=== PATIENT | male | born 1930 | race Caucasian/White ===

== ENCOUNTER → 2017-10-31 | Outpatient (CLI) | payer MEDICARE | END | disposition home or self-care (01) | LOC: CFH 12:42 | PROVIDERS: ATTEND Internal Medicine Cardiovascular Disease | DX: I08.1 Rheumatic disorders of both mitral and tricuspid valves (principal); I48.91 Unspecified atrial fibrillation; I10 Essential (primary) hypertension; E11.9 Type 2 diabetes mellitus without complications | CPT/HCPCS: 93306 ==

== ENCOUNTER 2017-11-25 06:44 | Observation (INO) | payer MEDICARE ==
[~2017-11-25] VITALS: Ht 175.3 cm; Wt 80.3 kg
[2017-11-25] MEDS ORDERED: SODIUM CHLORIDE 0.9% 1,000 ML IV SCH ×2 (07:19)
[2017-11-25 07:22] VITALS: BP 138/93
[2017-11-25] MEDS ORDERED: CEFAZOLIN PMX 1GM/50ML 50 ML IVPB ONE (07:30)
[2017-11-25] MEDS ORDERED: ATOR40TA78 PO (07:35)
[2017-11-25] MEDS ORDERED: APIX5TAB PO (07:35)
[2017-11-25] MEDS ORDERED: ASPI-621 PO (07:35)
[2017-11-25] MEDS ORDERED: FOLI0.8C PO (07:35)
[2017-11-25] MEDS ORDERED: MULT1TAB13 PO (07:35)
[2017-11-25] MEDS ORDERED: FENTANYL PF 250 MCG/5ML ONE (07:40)
[2017-11-25] MEDS ORDERED: POTA20TA14 PO (07:41)
[2017-11-25] MEDS ORDERED: FURO-92 PO (07:41)
[2017-11-25] MEDS ORDERED: METO25TA91 PO (07:41)
[2017-11-25] MEDS ORDERED: SILD50TA PO (07:41)
[2017-11-25] MEDS ORDERED: NITR0.4T28 SL (07:41)
[2017-11-25] MEDS ORDERED: PROPOFOL 10 MG/ML, 20ML ONE (07:42)
[2017-11-25] MEDS ORDERED: SUCCINYLCHOLINE 20 MG/ML, 10ML ONE (07:45)
[2017-11-25] MEDS ORDERED: ROCURONIUM 10MG/ML,5ML ONE (07:48)
[2017-11-25] MEDS ORDERED: CEFAZOLIN 1,000 MG ONE ×2 (07:48→11:12)
[2017-11-25] MEDS ORDERED: LIDOCAINE/PF 1%, 30ML ONE (07:48)
[2017-11-25] MEDS ORDERED: LORazepam 2 MG/ML, 1ML IVPush PRN (11:00)
[2017-11-25] MEDS ORDERED: ONDANSETRON ODT 8 MG PO PRN (11:00)
[2017-11-25] MEDS ORDERED: EPHEDRINE 50 MG/ML, 1ML IVPush PRN (11:00)
[2017-11-25] MEDS ORDERED: MIDAZOLAM 1 MG/ML, 2ML IV PRN (11:00)
[2017-11-25] MEDS ORDERED: hydrALAzine 20 MG/ML, 1ML IV PRN (11:00)
[2017-11-25] MEDS ORDERED: ALBUTEROL SULFATE 2.5 MG/3 ML NPPB PRN (11:00)
[2017-11-25] MEDS ORDERED: HALOPERIDOL 5 MG/ML IV PRN (11:00)
[2017-11-25] MEDS ORDERED: HOLD MEDICATION MC PRN (11:00)
[2017-11-25] MEDS ORDERED: FENTANYL PF 100 MCG/2ML IV PRN (11:00)
[2017-11-25] MEDS ORDERED: PROMETHAZINE 12.5 MG SUPP PR PRN (11:00)
[2017-11-25] MEDS ORDERED: LABETALOL 5MG/ML, 20ML IV PRN (11:00)
[2017-11-25] MEDS ORDERED: HYDROmorphone 1 MG/ML, 1ML IV PRN (11:00)
[2017-11-25] MEDS ORDERED: ONDANSETRON 2MG/ML, 2ML IV PRN (11:00)
[2017-11-25] MEDS ORDERED: ACETAMINOPHEN 325 MG TABLET PO PRN (11:00)
[2017-11-25] MEDS ORDERED: MORPHINE SULFATE 4 MG/ML, 1ML IVPush PRN (11:00)
[2017-11-25] MEDS ORDERED: SILDENAFIL CITRATE 50 MG PO PRN (11:00)
[2017-11-25] MEDS ORDERED: NITROGLYCERIN 0.4 MG BOTTLE (25 TABS) SL PRN (11:00)
[2017-11-25] MEDS ORDERED: MEPERIDINE/PF 25MG/0.5ML IVPush PRN (11:00)
[2017-11-25] MEDS ORDERED: OXYcodone 5 MG/5 ML ORAL.SOL UDC PO PRN (11:00)
[2017-11-25] MEDS ORDERED: PROMETHAZINE 25 MG/ML, 1ML IV PRN (11:00)
[2017-11-25] MEDS ORDERED: ONDANSETRON 2MG/ML, 2ML ONE (11:11)
[2017-11-25] MEDS ORDERED: DEXAMETHASONE 4 MG/ML, 1ML ONE (11:11)
[2017-11-25] MEDS ORDERED: EPHEDRINE 50 MG/ML, 1ML ONE (11:11)
[2017-11-25 12:24] VITALS: BP 113/80
[2017-11-25] MEDS: CEFAZOLIN PMX 1GM/50ML 50 ML IVPB SCH ×2 (14:50→23:32)
[2017-11-25 19:42] VITALS: BP 94/60
[2017-11-25] MEDS: METOPROLOL SUCCINATE 25 MG TAB.ER.24H PO SCH (21:00)
[2017-11-25] MEDS ORDERED: ATORVASTATIN 40 MG TABLET PO SCH (21:00)
[2017-11-25] MEDS: SODIUM CHLORIDE FLUSH 10ML SYR IVF SCH (21:13)
[2017-11-26 01:54] VITALS: BP 96/60
[2017-11-26 06:06] VITALS: BP 113/80
[2017-11-26 08:09] VITALS: BP 99/64
[2017-11-26] MEDS ORDERED: FOLIC ACID 1 MG TABLET PO SCH (09:00)
[2017-11-26] MEDS ORDERED: MULTIVITAMINS/MINERALS TABLET PO SCH (09:00)
[2017-11-26] MEDS ORDERED: ASPIRIN 81 MG TABLET EC PO SCH (09:00)
[2017-11-26] MEDS ORDERED: FUROSEMIDE 40 MG TABLET PO SCH (09:00)
[2017-11-26] MEDS ORDERED: POTASSIUM CHLORIDE 20 MEQ TAB.ER.PRT PO SCH (09:00)
[2017-11-26] MEDS: SODIUM CHLORIDE FLUSH 10ML SYR IVF SCH (09:09)
[2017-11-26] MEDS: METOPROLOL SUCCINATE 25 MG TAB.ER.24H PO SCH (09:09)
[2017-11-26 13:30] VITALS: BP 105/76
== END 2017-11-26 14:35 | disposition home or self-care (01) ==
LOC: CACL 06:44 → ORIP 10:40 → 5SO 11:50 → DCLOUNGE 11-26 14:13
PROVIDERS: ADMIT Internal Medicine Cardiovascular Disease; ATTEND Internal Medicine Cardiovascular Disease
DX: I48.91 Unspecified atrial fibrillation (principal); I44.2 Atrioventricular block, complete; I25.10 Atherosclerotic heart disease of native coronary artery without angina pectoris; I10 Essential (primary) hypertension; E78.5 Hyperlipidemia, unspecified
CPT/HCPCS: 33207; 33225; 71045; 71046; 93650; 96365; 96366; C1766; C1769; C1779; C1887; C1892; C1894; C1900; C2621; C2630; G0378; J0330; J0690; J1100; J2405; J2704; J3010; J3490; J7030; Q9967

== ENCOUNTER 2017-11-29 14:06 | Emergency (ER) | payer MEDICARE ==
[~2017-11-29 14:06] MED LIST: APIX5TAB PO; ASPI-621 PO; ATOR40TA78 PO; FOLI0.8C PO; FURO-92 PO; METO25TA91 PO; MULT1TAB13 PO; NITR0.4T28 SL; POTA20TA14 PO; SILD50TA PO
[2017-11-29 14:09] VITALS: BP 146/89
== END 2017-11-29 14:59 | disposition home or self-care (01) ==
LOC: ED 14:30
DX: T82.838A Hemorrhage due to vascular prosthetic devices, implants and grafts, initial encounter (principal); Z86.73 Personal history of transient ischemic attack (TIA), and cerebral infarction without residual deficits
CPT/HCPCS: 99283